=== PATIENT | female | born 2000 | race Caucasian/White ===

== ENCOUNTER 2020-01-09 12:47 | Inpatient (IN) | payer MEDICAID, SELFPAY ==
[2020-01-09] VITALS (11 sets, daily range): BP systolic 79–112; BP diastolic 35–80; PULSE 64–94; TEMP 36.7–36.9; BMI 28.2
--- NOTE | 2020-01-09 14:29 | PC.NURSE ---
Dr. Gallo notified up ultrasound report results. Admission orders received. Cervidil induction will be started r/t oligohydraminos and IUGR.
--- NOTE | 2020-01-09 14:38 | PC.NURSE ---
Plan of care discussed with patient using [employer] video strawhat sizer. Patient states understanding of induction and ultrasound report. Patient agrees to plan of care and induction.
--- NOTE | 2020-01-09 14:44 | LDADM ---
This patient, Jihan Lobo, was admitted to Labor/Delivery/Recovery 109 on 01/09/20 at 12:47. Plans for labor, pain management and were discussed with patient. Patient/family oriented to hospital policies and general routines including ID bracelet, bed and alarms, visiting hours, pain management, procedures, bathroom and other care routines, personal items, smoking policy, room service/diet and guest tray routines, infant security routines, and visiting hours. Patient/Family are encouraged to report perceived risks to care and to ask questions if they do not understand what they are told or what they should do. See OBIX for further documentation.
[2020-01-09] MEDS: DINOPROSTONE 10 MG VAG INSERT VAGINAL (15:25)
[2020-01-09 15:28] LABS: Basophils Percent Auto 0.4 % (0.2-1.2); Eosinophils Absolute Auto 0.3 K/mm3 (0-0.3); Eosinophils Percent Auto 2.5 % (0-4.4); Hematocrit 41.4 % (37.0-47.0); Hemoglobin 14.3 g/dL (12.0-15.0); Immature Granulocyte Absolute 0.03 K/mm3 (0.00-0.031); Immature Granulocyte Percent A 0.3 % (0-0.5); Lymphocytes Absolute Auto 2.03 K/mm3 (0.9-3.2); Lymphocytes Percent Auto 20.2 % (18.3-44.2); Mean Corpuscular HGB Conc 34.5 g/dl (32-36); Mean Corpuscular Hemoglobin 31.8 pg (26-34); Mean Platelet Volume 10.6 fl (7.4-10.4); Monocytes Absolute Auto 0.5 K/mm3 (0.1-0.6); Monocytes Percent Auto 5.3 % (2.6-8.5); Neutrophils Absolute Auto 7.2 K/mm3 (1.3-6.7); Neutrophils Percent Auto 71.3 % (45.5-73.1); Platelet Count Result 221 k/mm3 (150-375); Red Cell Distribution Width 12.7 % (11.5-14.5)
[2020-01-09] MEDS: LACTATED RINGERS 1,000 ML 125 ML IV CONT ×2 (16:05→18:26)
[2020-01-09] MEDS: AMPICILLIN 2 GM/NS 100 ML 2 GM/100 ML BAG IVPB (16:06)
[2020-01-09] MEDS: AMPICILLIN 1 GM/NS 50 ML 1 GM/50 ML BAG IVPB ×2 (19:45→23:33)
[2020-01-09 22:39] LABS: Amphetamine Screen Urine Negative (Negative); Barbiturate Screen Urine Negative (Negative); Benzodiazepines Screen Urine Negative (Negative); Cannabinoid Screen Urine Negative (Negative); Cocaine Screen Urine Negative (Negative); Methadone Screen Urine Negative (Negative); Opiate Screen Urine Negative (Negative); Phencyclidine Screen Urine Negative (Negative)
[2020-01-10] VITALS (203 sets, daily range): BP systolic 87–160; BP diastolic 42–135; PULSE 61–101; RESP 12–18; TEMP 36.6–37.2; O2SAT 96–100
[2020-01-10] MEDS: AMPICILLIN 1 GM/NS 50 ML 1 GM/50 ML BAG IVPB ×4 (03:41→17:22)
[2020-01-10] MEDS: OXYTOCIN 30 UNITS/NS 500 ML 30 UNITS/500 ML BAG 6 UNITS IV CONT (03:44)
[2020-01-10] MEDS: LACTATED RINGERS 1,000 ML 125 ML IV CONT ×3 (03:55→18:30)
--- NOTE | 2020-01-10 05:27 | WPDANESEPP ---
Anes - Eval Pre Procedure Procedure: Labor epidural Date/Time: 01/10/20 05:27 Surgeon: Cleo Preop Diagnosis: ABD pain with contractions Pre Op Diagnosis: Medical induction of Labor Patient Data Age: 19 Gender: F Height: 5 ft 2 in Weight: 70 kg Last Vital Signs Temp 98.4 F 01/10/20 03:30 Pulse 76 01/10/20 05:17 BP 106/49 L 01/10/20 05:17 Allergies Allergy/AdvReac Type Severity Reaction Status Date / Time No Known Allergies Allergy Verified 01/09/20 15:16 Home Medications Medication Instructions Recorded Confirmed Type PNV cmb#95-ferrous fumarate-FA 1 tablet PO DAILY 12/25/19 01/09/20 History [] folic acid 0.8 mg PO DAILY 12/25/19 01/09/20 History Laboratory Tests 01/09/20 01/09/20 01/09/20 15:02 15:02 15:02 WBC 10.0 K/mm3 K/mm3 (4.5-10.0) RBC 4.50 M/mm3 M/mm3 (4.2-5.4) Hgb 14.3 g/dL g/dL (12.0-15.0) Hct 41.4 % % (37.0-47.0) MCV 92.0 fl fl (80-100) MCH 31.8 pg pg (26-34) MCHC 34.5 g/dl g/dl (32-36) RDW 12.7 % % (11.5-14.5) Plt Count 221 k/mm3 k/mm3 (150-375) MPV 10.6 fl H fl (7.4-10.4) Immature Gran % (Auto) 0.3 % % (0-0.5) Neut % (Auto) 71.3 % % (45.5-73.1) Lymph % (Auto) 20.2 % % (18.3-44.2) [place] % (Auto) 5.3 % % (2.6-8.5) Eos % (Auto) 2.5 % % (0-4.4) Baso % (Auto) 0.4 % % (0.2-1.2) Lymph # (Auto) 2.03 K/mm3 K/mm3 (0.9-3.2) [place] # (Auto) 0.5 K/mm3 K/mm3 (0.1-0.6) Eos # (Auto) 0.3 K/mm3 K/mm3 (0-0.3) Baso # (Auto) 0.0 K/mm3 K/mm3 (0.0-0.1) Abs Immat Gran (auto) 0.03 K/mm3 K/mm3 (0.00-0.031) Absolute Neuts (auto) 7.2 K/mm3 H K/mm3 (1.3-6.7) Absolute Nucleated RBC 0.0 K/mm3 K/mm3 (0.0-0.012) Nucleated RBC % 0.0 % % (0.0-0.2) Urine Opiates Screen Urine Methadone Screen Ur Barbiturates Screen Ur Phencyclidine Scrn Ur Amphetamine Screen U Benzodiazepines Scrn Urine Cocaine Screen U Cannabinoids Screen RPR Pending Blood Type A Positive Antibody Screen Negative 01/09/20 22:04 WBC RBC Hgb Hct MCV MCH MCHC RDW Plt Count MPV Immature Gran % (Auto) Neut % (Auto) Lymph % (Auto) [place] % (Auto) Eos % (Auto) Baso % (Auto) Lymph # (Auto) [place] # (Auto) Eos # (Auto) Baso # (Auto) Abs Immat Gran (auto) Absolute Neuts (auto) Absolute Nucleated RBC Nucleated RBC % Urine Opiates Screen Negative (Negative) Urine Methadone Screen Negative (Negative) Ur Barbiturates Screen Negative (Negative) Ur Phencyclidine Scrn Negative (Negative) Ur Amphetamine Screen Negative (Negative) U Benzodiazepines Scrn Negative (Negative) Urine Cocaine Screen Negative (Negative) U Cannabinoids Screen Negative (Negative) RPR Blood Type Antibody Screen Patient hx anesthesia problems: none Family hx anesthesia problems: none [facility] Past Medical History Medical History (Updated 01/10/20 @ 05:28 by Alberto Masters CRNA) Overweight (BMI 25.0-29.9) and not yet delivered Family History Family History Mother Diabetes mellitus Social History Social History Smoking status: Never smoker Substance use: never Gender identity (if verbalized by the patient): Female Spiritual care concerns: No Exam Day of Procedure 01/10/20 05:27 Patient weight: overweight Neurological: alert and oriented
[2020-01-10 10:13] LABS: Rapid Plasma Reagin Non-Reactive (NonReactive)
[2020-01-10] MEDS: fentaNYL CITRATE INJ (*CRX) 100 MCG/2 ML VIAL 50 MCG IV PUSH (12:22)
--- NOTE | 2020-01-10 18:43 | PM.IMHP ---
H&P: HPI History of Present Illness Date/Time: 01/09/20 16:43 Chief complaint: Medical induction of Labor Narrative: Jihan Lobo is a 19 year old female primigravida Thai speaking presents at 37w2d With growth restriction ultrasound biophysical profile and Doppler studies revealed estimated weight 2475 g MARK of 4 oligohydramnios estimated weight 4th percentile now being admitted for induction of labor with Cervidil followed by oxytocin I explained her condition procedure risk involved maternal and indications for delivery explained and understood risk including but not limited to bleeding infection injury to bladder bowel baby pelvic vessels DVT pneumonia wound infections endometritis UTI and the risk of anesthesia and she agrees to proceed. c/b MTHFR, abnormal progesterone, and prediabetes Review of Systems Review of Systems: All systems reviewed & are unremarkable except as noted in HPI and below Constitutional: Constitutional: Reports no additional constitutional complaints Eyes: Eyes: Reports no additional eye complaints ENT: Reports system reviewed and no additional complaints, except as documented Cardiovascular: Cardiovascular: Reports no additional cardiovascular complaints Respiratory: Respiratory: Reports no additional respiratory complaints Gastrointestinal: Gastrointestinal: Reports no additional gastrointestinal complaints Genitourinary: Genitourinary: Reports no additional female genitourinary complaints Musculoskeletal: Musculoskeletal: Reports no additional musculoskeletal complaints Integumentary/Breasts: Skin/Breast: Reports system reviewed and no additional complaints, except as docu Neurologic: Reports system reviewed and no additional complaints, except as documented Psychiatric: Psychiatric: Reports no additional psychiatric complaints Endocrine: Endocrine: Reports no additional endocrine complaints Hematologic/Lymphatic: Hematologic/Lymphatic: Reports no additional hematologic/lymphatic complaints Allergic/Immunologic: Allergic/Immunologic: Reports no additional allergic/immunologic complaints [facility] Past Medical History Medical History (Updated 01/10/20 @ 18:53 by Johnson Gallo MD) growth restriction GBS (group B Streptococcus carrier), +RV culture, currently Heterozygous MTHFR mutation C677T Migraine headache Overweight (BMI 25.0-29.9) and not yet delivered Surgical History Surgical History H/O knee surgery Family History Family History Mother Diabetes mellitus Social History Social History Smoking status: Never smoker Second hand tobacco smoke exposure: No Alcohol intake: never Substance use: never Substance use type: does not use Living arrangements: with family Occupation/Education: unemployed Gender identity (if verbalized by the patient): Female Sexual Orientation (if Verbalized by the Patient): Straight or Heterosexual Spiritual care concerns: No Agree to blood products: Yes Meds Home Medications and Allergies Home Medications Medication Instructions Recorded Confirmed Type PNV cmb#95-ferrous fumarate-FA 1 tablet PO DAILY 12/25/19 01/09/20 History [] folic acid 0.8 mg PO DAILY 12/25/19 01/09/20 History Allergies Allergy/AdvReac Type Severity Reaction Status Date / Time No Known Allergies Allergy Verified 01/09/20 15:16 Vital Signs Vital Signs - 24 hr 01/09/20 22:04 01/09/20 23:31 01/09/20 23:35 Temperature 98.2 F Pulse Rate 71 71 Blood Pressure 79/35 L 89/63 L Pulse Oximetry 01/10/20 03:30 01/10/20 03:41 01/10/20 05:17 Temperature 98.4 F Pulse Rate 69 76 Blood Pressure 110/59 L 106/49 L Pulse Oximetry 01/10/20 05:30 01/10/20 05:45
--- NOTE | 2020-01-10 18:54 | WPDHPUPDATE1 ---
History and Physical Update Update Date/Time: 01/10/20 18:54 History and Physical has been reviewed, including an updated exam of the patient. There are NO changes in the patient's condition. Risks, benefits, and alternatives have been discussed and questions answered. Patient agrees to proceed with procedure. 19 y/o primigravida Citizen Of [place] speaking F presents at 37w2d for growth restriction oligohydramnios GBS positive here for induction of labor. c/b MTHFR, abnormal progesterone, and prediabetes
--- NOTE | 2020-01-10 18:56 | P.HP_ITS ---
Obstetrics - Admit Note Admission Note: record reviewed. No pertinent additions to the history and/or any subsequent changes in the physical findings that are not consistent with the expected course of the were found. Additions to the history and/or subsequent changes in the physical findings follow. None. 19 y/o primigravida [place] speaking F presents at 37w2d for growth restriction oligohydramnios GBS positive here for induction of labor and delivery. c/b MTHFR, abnormal progesterone, and prediabetes
--- NOTE | 2020-01-10 18:56 | PM.OBPNLAB ---
Pain Control Date/time seen: 01/10/20 18:56 Pain control: tolerating well and epidural Pelvic Exam Dilation (cm): 1 Effacement (%): 100 station: 0 Amniotic membrane status: Ruptured ( AROM IUPC placed without difficulty clear fluid obtained bloody show noted) Contractions Monitor mode: Internal Contraction frequency: 3 Contraction duration: 45 Contraction pattern: Regular Contraction phase: Resting Contraction intensity: Moderate Status status: Category l Assessment and Plan Assessment: induction ongoing Plan: continuous present management
--- NOTE | 2020-01-10 20:26 | PM.OBPNLAB ---
Pain Control Date/time seen: 01/10/20 20:26 Pain control: tolerating well and epidural Pelvic Exam Dilation (cm): 1 Effacement (%): 100 station: 0 Amniotic membrane status: Ruptured ( AROM IUPC placed without difficulty clear fluid obtained bloody show noted) Contractions Monitor mode: Internal Contraction frequency: 3 Contraction duration: 45 Contraction pattern: Regular Contraction phase: Resting Contraction intensity: Moderate Status status: Category l Assessment and Plan Pitocin rate (mU/min): 12 Assessment: induction ongoing and other ( failure to progress in labor, cephalopelvic disproportion) Plan: ( primary low transverse) Comments: epidural anesthesia Informed consent obtained
[2020-01-10] MEDS: ceFAZolin 2 GM/D5W 50 ML 2 GM/50 ML BAG IVPB (20:52)
[2020-01-10] MEDS: OXYTOCIN 10 UNITS/ML VIAL (21:22)
--- NOTE | 2020-01-10 21:57 | PM.OBPRVD ---
OB - Delivery Note Procedure Procedure: Procedures Operation Date: 01/10/20 20:15 primary low transverse section with delivery of viable male infant and placenta events: Oligohydramnios Intrapartal events: Ceph-Pelvic Disproportion Induction method: per misoprostol protocol and per pitocin protocol Delivery augmentation: rupture of membranes and pitocin Delivery monitor: external FHT and internal uterine Route of delivery: ( primary low transverse) Specimen: Yes ( placenta) Estimated blood loss (mL): 470 Anesthesia type: Spinal Disposition: floor Complications: none Baby Date of : 01/10/20 Time of : 21:16 Weeks of gestation at delivery: 37 Infant gender: Male Weight (pounds): 5 Weight (ounces): 2 presentation: vertex position: Left Occiput Transverse Placenta delivery description: Manual Removal and Normal Configuration cord vessel description: 3 Vessels score one minute: 9 score five minutes: 9
--- NOTE | 2020-01-10 22:01 | P.OP_ITS ---
Procedure Note - Detailed Date of procedure: 01/10/20 Pre-op diagnosis: Medical induction of Labor term 37 weeks growth restriction oligohydramnios failure to dilate cephalopelvic disproportion GBS carrier heterozygous MTHFR mutation Post-op diagnosis: same ( delivered viable male ) Procedure performed: primary low transverse section with delivery of viable male infant and placenta Description of procedure: informed consent obtained patient taken to the operating room where the epidural anesthesia was removed and a spinal anesthetic was administered with a Miller catheter in place the abdomen was then prepped and draped in the usual sterile fashion and a time-out was performed A Pfannenstiel incision was made to the skin in the abdomen was opened in layers hemostasis obtained by cauterization fascia was entered bilaterally undermined inferiorly and superiorly rectus muscle in the midline peritoneum was entered with electrocautery transverse incision was then made to the uterus and extended bilaterally digitally vertex was then delivered via the abdominal incision with nose and throat pink bulb suction the cord was clamped and cut and the infant was handed to the nursery nurse in attendance scores 9 and 9 weight 5 lb 2 oz 18 in long taken to the nursery in stable condition placenta cord gases and cord blood was obtained and the placenta was delivered intact with a three-vessel cord with the uterus beatriz well Pitocin given intravenously and 10 units into the myometrium. The uterus was externalized blood clots membranes removed from the intrauterine cavity the uterine incision was then repaired in 2 layers with 0 Vicryl in a running interlocking fashion 2nd being an imbricating stitch irrigation was performed blood clots removed from the cul-de-sac on both lateral gutters the uterus was returned to the peritoneal cavity the sponge needle and instrument counts were correct the anterior peritoneum and rectus muscles were reapproximated with 0 Vicryl suture in a running fashion. Fascia was closed with 2. Quill SIRS system bilaterally. Axel's fascia reapproximated 3 0 plain skin closed with absorbable laura under the skin and Dermabond to the skin a sterile dressing was applied the patient was taken to the recovery room stable condition patient tolerated procedure well was in recovery stable condition . Anesthesia: spinal Surgeon: Johnson Gallo MD Admissions Nurse: surgical assists x2 Estimated blood loss (mL): 470 IV fluids (mL): 1,000 Urine output (mL): 200 Drains: No Packing: No Pathology: yes ( placenta) Complications: None Condition: stable Disposition: floor Findings: viable male infant delivered at 9:16 p.m. scores 9 and 9 at 1 and 5 minutes weighing 5 lb 2 oz 18 in long taken to the nursery in stable condition. Spontaneous respirations and cry normal transition no abnormalities on the exam Placenta intact three-vessel cord uterus tubes ovaries normal Counts correct complications none specimens pathology placenta VTE prevention SCDs Antibiotic prophylaxis Ancef 2 g Patient in recovery room stable condition
--- NOTE | 2020-01-10 22:08 | PM.OBDSVD ---
DS: Admitting Diagnosis Admitting Diagnosis Admitting Diagnosis: Medical induction of Labor Term growth restriction Heterozygous MTHFR mutation Oligohydramnios GBS carrier DS: Discharge Diagnosis Discharge Diagnosis (1) Term delivered: Code(s): O80 - Encounter for full-term uncomplicated delivery Status: Acute (2) Cephalopelvic disproportion: Code(s): O33.9 - Maternal care for disproportion, unspecified Status: Acute (3) Failure of cervical dilation: Code(s): O62.0 - Primary inadequate contractions Status: Acute (4) Oligohydramnios: Code(s): O41.00X0 - Oligohydramnios, unspecified trimester, not applicable or unspecified Status: Acute (5) GBS (group B Streptococcus carrier), +RV culture, currently : Code(s): O99.820 - Streptococcus B carrier state complicating Status: Acute (6) growth restriction: Status: Acute (7) Heterozygous MTHFR mutation C677T: Code(s): 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 - Methylenetetrahydrofolate reductase deficiency Status: Acute (8) Delivery by section: Status: Acute OB - DS: Summary Hospital Course Time spent discussing smoking cessation with patient: 3 to 10 minutes OB Procedures : Ultrasound OB Procedures Intrapartum: ( primary) low cervical, transverse and GBS prophylaxis OB Procedures: : None Peripartum Data Infant Delivery Method: Section ( primary low transverse) Laceration description: None Episiotomy description: None Procedures: Procedures Operation Date: 01/10/20 20:15 primary low transverse section with delivery of viable male infant and placenta complications: none [place] 1: Gender: Male Disposition of : home Status at Discharge Functional status at discharge: independent ambulation Overall status at discharge: patient is back to baseline Time Spent with Patient Time attestation: Total time spent providing and/or coordinating discharge services: Time spent: Less than 30 minutes Exam Const: General: comfortable and no acute distress Orientation/consciousness: patient oriented x3 Limitations: no limitations Chest: Breast/axilla inspection: normal inspection of the breasts Breast/axilla palpation: normal palpation of the breasts Resp: Effort & Inspection: normal respiratory effort Auscultation: clear to auscultation bilaterally Cardio: Rate: regular rate GI: Inspection: normal to inspection and incision ( clean dry intact dressing normal) GI Palp: Yes Soft to palpation Percussion: Yes normal to percussion Auscultation: normal bowel sounds : General: Yes bladder normal to inspection and Yes no CVA tenderness Psych: Appearance: grossly normal Mental Status: mental status grossly normal Affect: normal affect Attitude: cooperative Thought content: Yes Normal thought content present Judgement: Good judgement present (Psych) DS: Data Data Completed and Pending Labs on day of discharge: Labs from last 24 hours 01/09/20 01/09/20 22:04 15:02 Urine Opiates Screen Negative Urine Methadone Screen Negative Ur Barbiturates Screen Negative Ur Phencyclidine Scrn Negative Ur Amphetamine Screen Negative U Benzodiazepines Scrn Negative Urine Cocaine Screen Negative U Cannabinoids Screen Negative RPR Non-reactive Discharge Plan Discharge Attending physician on discharge: Johnson Gallo Discharging Clinician: Johnson Gallo Anticipated Discharge Date/Time: 01/13/20 10:13 Patient Disposition: Home, Self-Care Activity: may shower, no straining, no driving and may drive after 2 weeks Diet: as tolerated and regular Wound Care Instructions: follow printed instructions Discharge Instructions: routine Patient Instructions: Antibiotic Form Stand Alone Forms: General Discharge Information Follow-up/Referrals:
[2020-01-10] MEDS: OXYTOCIN 30 UNITS/NS 500 ML 30 UNITS/500 ML BAG 125 UNITS IV CONT (22:51)
[2020-01-11] VITALS (17 sets, daily range): BP systolic 88–113; BP diastolic 47–66; PULSE 61–85; RESP 16–18; TEMP 36.7–37.2; O2SAT 94–99
[2020-01-11] MEDS: KETOROLAC 30 MG/ML VIAL (*BKC) IV PUSH ×4 (00:30→16:06)
[2020-01-11] MEDS: DEXTROSE 5%/0.45% SOD CHL 1,000 ML 125 ML IV CONT (03:30)
[2020-01-11 05:45] LABS: Basophils Percent Auto 0.2 % (0.2-1.2); Eosinophils Percent Auto 0.2 % (0-4.4); Hematocrit 29.9 % (37.0-47.0); Hemoglobin 10.4 g/dL (12.0-15.0); Immature Granulocyte Absolute 0.08 K/mm3 (0.00-0.031); Immature Granulocyte Percent A 0.6 % (0-0.5); Lymphocytes Absolute Auto 1.46 K/mm3 (0.9-3.2); Lymphocytes Percent Auto 10.6 % (18.3-44.2); Mean Corpuscular HGB Conc 34.8 g/dl (32-36); Mean Corpuscular Hemoglobin 31.7 pg (26-34); Mean Corpuscular Volume 91.2 fl (80-100); Mean Platelet Volume 10.8 fl (7.4-10.4); Monocytes Absolute Auto 0.6 K/mm3 (0.1-0.6); Monocytes Percent Auto 4.6 % (2.6-8.5); Neutrophils Absolute Auto 11.5 K/mm3 (1.3-6.7); Neutrophils Percent Auto 83.8 % (45.5-73.1); Platelet Count Result 144 k/mm3 (150-375); Red Blood Count 3.28 M/mm3 (4.2-5.4); Red Cell Distribution Width 12.3 % (11.5-14.5); White Blood Count 13.8 K/mm3 (4.5-10.0)
--- NOTE | 2020-01-11 09:20 | WPDANLDPN2 ---
Anes-Prog Note L&D Date/Time: 01/11/20 09:20 Comfortable throughout: section Neuraxial method: spinal Epidural/Spinal procedure site: clean & non-tender Neuro status: Neuro function grossly intact. Cardiovascular status: normal Respiratory status: normal Airway patency: baseline Mental status: baseline Post-Op hydration status: normal Vital Signs: Last Vital Signs Temp 36.7 C 01/11/20 04:00 Pulse 83 01/11/20 04:00 Resp 16 01/11/20 04:00 BP 97/47 L 01/11/20 04:00 Pulse Ox 98 01/11/20 04:00 Pain score (VAS): 0 I/O: Intake & Output 01/10/20 01/11/20 01/11/20 23:59 07:59 15:59 Intake Total 2100 1150 Output Total 200 815 Balance 1900 335 Post-procedural complaints: none Patient feedback: Patient satisfied with anesthetic care.
--- NOTE | 2020-01-11 09:21 | WPDANLDNPN2 ---
Anes-Prog Note L&D-Neuraxial Date/Time: 01/11/20 09:21 Neuraxial medications: intrathecal PF morphine Opiod-related complaints: none Patient feedback: Patient satisfied with post-operative pain management.
--- NOTE | 2020-01-11 09:30 | PC.NURSE ---
PT introductions made and plan of care discussed per post op c section, pain management, breast/bottle feeding, daily care activities using pt's language delilah on her phone. Any questions asked and answered regarding certificate, blood sugars on baby, and supervisor inspection and testing. PT verbalized understanding of such instructions.
[2020-01-11] MEDS: SIMETHICONE 80 MG TAB.CHEW PO (10:23)
[2020-01-11] MEDS: DOCUSATE SODIUM 100 MG CAPSULE PO ×2 (10:23→16:06)
[2020-01-11] MEDS: MULTIVIT/MIN/PREN/FOL AC/IRON TABLET 1 TAB PO (10:23)
[2020-01-11] MEDS: LANOLIN (LANSINOH) 7.5 GM CREAM 1 APPLIC TOPICAL (10:24)
--- NOTE | 2020-01-11 12:00 | PC.NURSE ---
Consult with pt., thru cell tender helper. Mother states she is pumping and bottle feeding at this time, due to infant is sleepy and not latching. continues to pump without difficulties. Mother states her goal is to eventually exclusively breastfeed. Suggested mother attempt infant to breast each feeding for a few minutes and allow infant to skin to skin to assist with milk production. Pt.'s mother is at bedside assisting her with latching and care. Mother attempts infant to breast, Advised mother to pump after attempt and any EBM obtained should be given with next feeding. Reviewed infant feeding cues, frequencies, duration of feedings, feeding elimination flow sheet, and signs of adequate intake. Demonstrated stimulation techniques to wake infant for feeding. Reviewed positioning/alignment in cross cradle, holding breast in U hold and guided asymmetrical latch on. Discussed rational for each. Infant is sleepy and makes weak attempts to latch with no suckling noted. Nipple care reviewed. Instructed mother to call out for RN assistance if she is unable to latch infant for feeding or she has discomfort with nursing. Instructed feeding should be initiated three hours from start of last feeding or if feeding cues are noted before. Mother voiced understanding of information shared. Reviewed instructions given on breast pump care and usage, pumping schedule, nipple care, and collection and storage of breast milk. Encouraged [id number], breast massage and manual expression to stimulate supply. Assessed patient for correct flange size, placement and draw. Patient verbalizes and demonstrates understanding of instructions.
[2020-01-11] MEDS: HYDROcodone/acetaminophen (*CRX) 10-325 MG TABLET 1 TAB PO (12:14)
[2020-01-12] MEDS: IBUPROFEN 600 MG TABLET PO ×2 (05:16→16:59)
[2020-01-12] MEDS: HYDROcodone/acetaminophen (*CRX) 5-325 MG TABLET 1 TAB PO ×3 (05:16→16:57)
[2020-01-12 08:30] VITALS: PULSE 64; RESP 16; O2SAT 100
[2020-01-12 08:35] VITALS: BP 90/50; PULSE 64; RESP 16; TEMP 37.3; O2SAT 100
[2020-01-12] MEDS: MULTIVIT/MIN/PREN/FOL AC/IRON TABLET 1 TAB PO (09:20)
[2020-01-12] MEDS: DOCUSATE SODIUM 100 MG CAPSULE PO ×2 (09:20→16:57)
--- NOTE | 2020-01-12 10:27 | PM.OBPNVD ---
OB - PN: Subj Subjective Date/time seen: 01/12/20 10:27 Patient comments: no complaints, pain well controlled, tolerating diet and flatus present [place] baby status: doing well and bottle feeding well [place] feeding status: exclusively bottle feeding OB - PN: Obj Data Labs CBC & Chem 7: 01/11/20 05:13 OB - PN A/P Assessment and Plan (1) Term delivered: Code(s): O80 - Encounter for full-term uncomplicated delivery Status: Acute (2) Cephalopelvic disproportion: Code(s): O33.9 - Maternal care for disproportion, unspecified Status: Acute (3) Failure of cervical dilation: Code(s): O62.0 - Primary inadequate contractions Status: Acute (4) GBS (group B Streptococcus carrier), +RV culture, currently : Code(s): O99.820 - Streptococcus B carrier state complicating Status: Acute (5) growth restriction: Status: Acute (6) Heterozygous MTHFR mutation C677T: Code(s): E72.12 - Methylenetetrahydrofolate reductase deficiency Status: Acute (7) Delivery by section: Status: Acute Assessment and Plan: Stable Time Spent With Patient Time: Total time spent is greater than 50% in coordination of care (as documented) at patient's floor/unit and/or counseling patient: discharged to home in the morning return to the office in 3 weeks Review of Systems Review of Systems: All systems reviewed & are unremarkable except as noted in HPI and below Constitutional: Constitutional: Reports no additional constitutional complaints Cardiovascular: Cardiovascular: Reports no additional cardiovascular complaints Respiratory: Respiratory: Reports no additional respiratory complaints Gastrointestinal: Gastrointestinal: Reports no additional gastrointestinal complaints Genitourinary: Genitourinary: Reports no additional female genitourinary complaints Integumentary/Breasts: Skin/Breast: Reports system reviewed and no additional complaints, except as docu Neurologic: Reports system reviewed and no additional complaints, except as documented Exam Const: General: comfortable and no acute distress Orientation/consciousness: patient oriented x3 Chest: Breast/axilla inspection: normal inspection of the breasts Resp: Effort & Inspection: normal respiratory effort Auscultation: clear to auscultation bilaterally Cardio: Rate: regular rate GI: Inspection: normal to inspection and incision GI Palp: Yes Soft to palpation Percussion: Yes normal to percussion Auscultation: normal bowel sounds : General: Yes bladder normal to inspection and Yes no CVA tenderness Psych: Appearance: grossly normal Mental Status: mental status grossly normal Affect: normal affect Attitude: cooperative Judgement: Good judgement present (Psych)
--- NOTE | 2020-01-12 13:00 | PC.NURSE ---
Consult with pt., thru braiding machine operator. Mother continues to pump without difficulties. Mother attempts infant to breast most feedings, is sleepy and makes weak attempts to latch with no suckling noted. Mother is wic and has a [place] speaking peer counselor, which she plans to call for appointment later next week. Mother has started the pump process with [facility] and they will provide her with a pump. Advised mother to pump after attempt and any EBM obtained should be given with next feeding.
[2020-01-12] MEDS: SIMETHICONE 80 MG TAB.CHEW PO (19:27)
[2020-01-12] MEDS: BISACODYL 10 MG SUPPOSITORY RECTAL (19:27)
[2020-01-12 19:34] VITALS: BP 113/71; PULSE 64; RESP 18; TEMP 36.8; O2SAT 100
[2020-01-13] MEDS: IBUPROFEN 600 MG TABLET PO ×2 (05:17→11:08)
[2020-01-13] MEDS: HYDROcodone/acetaminophen (*CRX) 5-325 MG TABLET 1 TAB PO ×2 (05:17→09:03)
[2020-01-13 08:15] VITALS: BP 96/46; PULSE 59; RESP 16; TEMP 36.6; O2SAT 98
[2020-01-13] MEDS: MULTIVIT/MIN/PREN/FOL AC/IRON TABLET 1 TAB PO (09:03)
[2020-01-13] MEDS: DOCUSATE SODIUM 100 MG CAPSULE PO (09:03)
--- NOTE | 2020-01-13 11:43 | WPDANLDPN2 ---
Anes-Prog Note L&D Date/Time: 01/13/20 11:43 Comfortable throughout: section Neuraxial method: spinal Epidural/Spinal procedure site: clean & non-tender Neuro status: Neuro function grossly intact. Cardiovascular status: normal Respiratory status: normal Airway patency: baseline Mental status: baseline Post-Op hydration status: normal Vital Signs: Last Vital Signs Temp 36.6 C 01/13/20 08:15 Pulse 59 L 01/13/20 08:15 Resp 16 01/13/20 08:15 BP 96/46 L 01/13/20 08:15 Pulse Ox 98 01/13/20 08:15 Pain score (VAS): 0 Post-procedural complaints: none Patient feedback: Patient satisfied with anesthetic care.
--- NOTE | 2020-01-13 11:43 | WPDANLDNPN2 ---
Anes-Prog Note L&D-Neuraxial Date/Time: 01/13/20 11:43 Neuraxial medications: intrathecal PF morphine Opiod-related complaints: none Patient feedback: Patient satisfied with post-operative pain management.
[2020-01-15 12:22] VITALS: BP 103/51; PULSE 55; RESP 18; TEMP 36.9; O2SAT 100
== END 2020-01-13 13:44 | disposition home or self-care (01) | DRG 540 ==
LOC: ANHLDR 01-10 22:15 → ANHOB2 01-11 00:15
PROVIDERS: Admitting Provider Obstetrics & Gynecology; PCP Physician Assistant; Visit Provider Obstetrics & Gynecology
PROC: 10D00Z1 Extraction of Products of Conception, Low, Open Approach (ICD-10-PCS; CPT 59514; principal; 2020-01-10 20:15)
DX: O36.5930 Maternal care for other known or suspected poor fetal growth, third trimester, not applicable or unspecified (principal); O99.284 Endocrine, nutritional and metabolic diseases complicating childbirth; E72.12 Methylenetetrahydrofolate reductase deficiency; O99.824 Streptococcus B carrier state complicating childbirth; O41.03X0 Oligohydramnios, third trimester, not applicable or unspecified; O76 Abnormality in fetal heart rate and rhythm complicating labor and delivery; Z3A.38 38 weeks gestation of pregnancy; Z37.0 Single live birth; Z23 Encounter for immunization; R73.03 Prediabetes; O62.0 Primary inadequate contractions; O33.9 Maternal care for disproportion, unspecified
CPT/HCPCS: 36415; 76816; 76819; 76820; 80307; 85025; 86592; 86850; 86900; 86901; 88307; 90471; 90653; A9270; G0008; J0131; J0290; J0690; J1885; J2274; J2590; J2795; J3010; J7120

== ENCOUNTER 2020-01-09 12:51 | Outpatient (RCR) | payer MEDICAID, SELFPAY ==
[2020-01-01 17:25] VITALS: BP 114/58; PULSE 67
[2020-01-01 17:51] VITALS: BP 114/58; PULSE 73
--- NOTE | ~2020-01-09 | US_ITS ---
EXAMINATION: US OB follow up w BPP, US umbilical doppler DATE: 01/09/2020 14:04 INDICATION: Small for gestational age during third trimester of . TECHNIQUE: Real-time pelvic ultrasound was performed. The interpreting radiologist was not present fo r the study. COMPARISON: 01/01/2020 FINDINGS: There is a single living fetus in vertex presentation. The placenta is anterior fundal. heart rate is 139 beats per minute (bpm). Amniotic fluid index is 4.1 cm (5th%-95%: - cm at weeks estimated gestational age) The umbilical artery demonstrates a peak systolic and diastolic velocity ratio of 2.5 at the fetus, 3 .0 in the mid cord and 2.5 near the placenta (2.5th%-97.5%: 6.5-26.9 at 38 weeks estimated gestationa l age). The following biometric data were obtained: BPD: 8.9 cm -> 35 weeks 5 days Head circumference: 31.6 cm -> 35 weeks 3 days Abdominal circumference: 30.6 cm -> 34 weeks 4 days Femur length: 6.8 cm -> 35 weeks 1 days These measurements are concordant. Head circumference to abdominal circumference ratio: 1.03 (normal range 0.93-1.10). Estimated weight: 2547 g (+/-) 382 g, 5 lbs 10 oz (+/-) 13 oz Biophysical profile performed by the technologist: breathing (30 sec sustained breathing in 30 minutes): 2 out of 2 movement (3 gross body movements in 30 minutes: 2 out of 2 tone (one episode of vasebig-eohulqsqt-jqhnrkj limb movement): 2 out of 2 Amniotic fluid pocket (2 cm): 2 out of 2 Total score: 8 out of 8 IMPRESSION: 1. Single living fetus in vertex presentation with heart rate of 139 bpm. 2. Oligohydramnios with amniotic fluid index of 4.1 cm which is greater than 3 standard deviations be low the mean. 3. Normal umbilical arterial systolic to diastolic velocity ratios. 4. Biophysical profile 8 out of 8. 5. Estimated weight is 5th percentile by Hadlock criteria when 01/23/2020 is used as the estima tyrell date of delivery (KRISHNA). Please correlate with clinical information or earlier ultrasounds for mos t accurate KRISHNA. Reviewed, dictated and finalized at location A. IMPRESSION: 1. Single living fetus in vertex presentation with heart rate of 139 bpm. 2. Oligohydramnios with amniotic fluid index of 4.1 cm which is greater than 3 standard deviations below the mean. 3. Normal umbilical arterial systolic to diastolic velocity ratios. 4. Biophysical profile 8 out of 8. 5. Estimated weight is 5th percentile by Hadlock criteria when 01/23/2020 is used as the estimated date of delivery (KRISHNA). Please correlate with clinica l information or earlier ultrasounds for most accurate KRISHNA.
--- NOTE | ~2020-01-09 | US_ITS ---
EXAMINATION: US OB follow up w BPP, US umbilical doppler DATE: 01/01/2020 18:45 INDICATION: Intrauterine growth retardation during third trimester of TECHNIQUE: Real-time pelvic ultrasound was performed. The interpreting radiologist was not present fo r the study. COMPARISON: None. FINDINGS: There is a single living fetus in vertex presentation. The placenta is fundal. heart rate is 1 25 beats per minute (bpm). Normal amniotic fluid index of 8.3 cm (5th%-95%: 7.7-24.9 cm at 36 weeks e stimated gestational age). Biophysical profile performed by the technologist: breathing (30 sec sustained breathing in 30 minutes): 2 out of 2 movement (3 gross body movements in 30 minutes): 2 out of 2 tone (one episode of rszcktt-lnhjohmgc-hmizbol limb movement): 2 out of 2 Amniotic fluid pocket (2 cm): 2 out of 2 Total score: 8 out of 8 The umbilical artery demonstrates a peak systolic and diastolic velocity ratio of 3.5 at the fetus, 2 .3-2.7 in the mid cord and 3.1 near the placenta (5th%-95%: 1.98-3.29 at 36 weeks). IMPRESSION: 1. Single living fetus in vertex presentation with heart rate of 125 bpm. 2. Biophysical profile 8 out of 8. 3. Normal amniotic fluid index of 8.3 cm. 4. Umbilical artery systolic to diastolic velocity ratio is slightly greater than normal near the [place] but within normal limits at the fetus and mid cord. Reviewed, dictated and finalized at location A. IMPRESSION: 1. Single living fetus in vertex presentation with heart rate of 125 bpm. 2. Biophysical profile 8 out of 8. 3. Normal amniotic fluid index of 8.3 cm. 4. Umbilical artery systolic to diastolic velocity ratio is slightly greater th an normal near the placenta but within normal limits at the fetus and mid cord.
== END 2020-01-11 08:22 | disposition home or self-care (01) ==
LOC: ANHOBOP 12:51
PROVIDERS: PCP Physician Assistant; Visit Provider Obstetrics & Gynecology
DX: O36.5930 Maternal care for other known or suspected poor fetal growth, third trimester, not applicable or unspecified (principal); O41.03X0 Oligohydramnios, third trimester, not applicable or unspecified; Z3A.36 36 weeks gestation of pregnancy
CPT/HCPCS: 59025; 76816; 76819; 76820

== ENCOUNTER 2021-06-10 15:53 | Emergency (ER) | payer BC, SELFPAY ==
--- NOTE | ~2021-06-10 | XR_ITS ---
EXAMINATION: XR abdomen/kub 1V DATE: 06/10/2021 19:26 INDICATION: Upper abdominal pain, nausea and vomiting TECHNIQUE: A supine view of the abdomen on 2 radiographs was obtained. COMPARISON: None. FINDINGS: Moderate amount of stool scattered throughout the colon. No dilated loops of gas-filled bowel to sugg est obstruction. Lung bases are clear. Heart size is normal. 3 mm calcific density projecting between the right transverse process of L5 and the right sacral ala which could represent a phlebolith or sm all stone in the mid right ureter. Linear foreign body projecting over the central pelvis likely repr esenting a T-shaped IUD seen on end. IMPRESSION: 1. Normal bowel gas pattern. 2. 3 mm calcific density projecting over the paravertebral right lower quadrant which could represent a phlebolith or right ureteral stone. Correlate with urinalysis and for renal colic type pain. 3. IUD Reviewed, dictated and finalized at location A. [employer] IMPRESSION: 1. Normal bowel gas pattern. 2. 3 mm calcific density projecting over the paravertebral right lower quadrant which could represent a phlebolith or right ureteral stone. Correlate with uri nalysis and for renal colic type pain. 3. IUD
[2021-06-10 16:22] VITALS: BP 122/77; PULSE 52; RESP 16; TEMP 36.5; O2SAT 100
--- NOTE | 2021-06-10 18:54 | ED.ABDPAIN ---
HPI - Abdominal Pain General Chief Complaint: Abdominal Pain Stated Complaint: abdominal pain Time Seen by Provider: 06/10/21 18:41 Source: patient Mode of arrival: ambulatory Limitations: no limitations History of Present Illness HPI narrative: Patient is a 19-year-old female complaining of abdominal pain cough upper abdominal area, moderate, radiating to back that started approximately 2 weeks ago. Patient denies any chest pain, shortness of breath, nausea, vomiting, diarrhea, urinary symptoms, fever or chills. Related Data Allergies Allergy/AdvReac Type Severity Reaction Status Date / Time No Known Allergies Allergy Verified 01/09/20 15:16 Review of Systems Review of Systems: All systems reviewed & are unremarkable except as noted in HPI and below Constitutional: Constitutional: Denies body ache(s), Denies chills, Denies excessive sweating, Denies fatigue, Denies fever(s), Denies headache(s), Denies lethargy, Denies malaise, Denies weakness and Denies weight loss Eyes: Eyes: Denies blurry vision, Denies change in vision and Denies loss of vision ENT: Denies dizziness, Denies ear discharge, Denies headache(s), Denies lip swelling, Denies epistaxis, Denies nasal congestion, Denies neck pain, Denies throat swelling and Denies tongue swelling Cardiovascular: Cardiovascular: Denies chest pain, Denies chest pain at rest, Denies chest pain with activity, Denies diaphoresis, Denies rapid heart rate, Denies edema, Denies irregular heart rhythm, Denies lightheadedness, Denies palpitations, Denies dyspnea and Denies dyspnea on exertion Respiratory: Respiratory: Denies chest congestion, Denies cough, Denies hemoptysis, Denies dyspnea and Denies dyspnea on exertion Gastrointestinal: Gastrointestinal: Denies melena, Denies hematochezia, Denies diarrhea, Denies nausea, Denies vomiting and Denies hematemesis Musculoskeletal: Musculoskeletal: Denies abnormal gait, Denies deformity, Denies joint swelling, Denies limited range of motion, Denies neck pain and Denies numbness Neurologic: Denies Abnormal speech present, Denies abnormal gait, Denies confusion, Denies dizziness, Denies headache(s), Denies focal weakness, Denies loss of vision, Denies numbness, Denies Other visual disturbances, Denies Sensory deficit (Neuro) and Denies weakness Psychiatric: Psychiatric: Denies confusion, Denies depression, Denies auditory hallucinations, Denies homicidal ideation and Denies suicidal ideation Endocrine: Endocrine: Denies cold intolerance, Denies excessive sweating, Denies fatigue, Denies heat intolerance and Denies palpitations Hematologic/Lymphatic: Hematologic/Lymphatic: Denies easy bleeding and Denies easy bruising Allergic/Immunologic: Allergic/Immunologic: Denies lip swelling, Denies throat swelling and Denies tongue swelling PMFSH Past Medical History Medical History growth restriction GBS (group B Streptococcus carrier), +RV culture, currently Heterozygous MTHFR mutation C677T Migraine headache Overweight (BMI 25.0-29.9) and not yet delivered Surgical History Surgical History Delivery by section H/O knee surgery Family History Family History Mother Diabetes mellitus Social History Social History Smoking status: Never smoker Second hand tobacco smoke exposure: No Alcohol intake: never Substance use: never Substance use type: does not use Gender identity (if verbalized by the patient): Female Sexual Orientation (if Verbalized by the Patient): Straight or Heterosexual Spiritual care concerns: No Agree to blood products: Yes Exam Const: General: cooperative, healthy appearing, comfortable, no acute distress, well developed, alert and awake; No confusion Orienta
[2021-06-10 19:07] VITALS: BP 118/68; PULSE 62; RESP 16; TEMP 36.3; O2SAT 100
[2021-06-10 19:08] LABS: Basophils Absolute Auto 0.1 K/mm3 (0.0-0.1); Basophils Percent Auto 0.6 % (0.2-1.2); Eosinophils Absolute Auto 0.3 K/mm3 (0-0.3); Eosinophils Percent Auto 3.6 % (0-4.4); Hemoglobin 13.3 g/dL (12.0-15.0); Immature Granulocyte Absolute 0.01 K/mm3 (0.00-0.031); Immature Granulocyte Percent A 0.1 % (0-0.5); Lymphocytes Absolute Auto 3.09 K/mm3 (0.9-3.2); Lymphocytes Percent Auto 35.7 % (18.3-44.2); Mean Corpuscular HGB Conc 33.3 g/dl (32-36); Mean Corpuscular Hemoglobin 29.3 pg (26-34); Mean Corpuscular Volume 88.1 fl (80-100); Mean Platelet Volume 10.3 fl (7.4-10.4); Monocytes Absolute Auto 0.5 K/mm3 (0.1-0.6); Monocytes Percent Auto 5.5 % (2.6-8.5); Neutrophils Absolute Auto 4.7 K/mm3 (1.3-6.7); Neutrophils Percent Auto 54.5 % (45.5-73.1); Platelet Count Result 257 k/mm3 (150-375); Red Blood Count 4.54 M/mm3 (4.2-5.4); Red Cell Distribution Width 12.4 % (11.5-14.5); White Blood Count 8.7 K/mm3 (4.5-10.0)
[2021-06-10 19:15] LABS: Add Urine Microscopic? YES; Appearance Urine Cloudy (Clear); Bilirubin Urine Negative (Negative); Blood Urine 1+ (Negative); Color Urine Yellow (Yellow); Glucose Urine UA Negative (Negative); Ketones Urine Negative (Negative); Leukocyte Esterase Ur 3+ LEU/UL (Negative); Mucus Urine Rare /lpf; Nitrate Urine Negative (Negative); Protein Urine Negative (Negative); Specific Grav Ur 1.025 (1.001-1.035); Squamous Epithelial Cell Urine Many /hpf (Few); Urobilinogen Urine Negative mg/dL (<2.0); WBC Urine 16-20 /hpf
[2021-06-10 19:18] LABS: Alanine Aminotransferase 16 U/L (4-35); Albumin Level 4.8 g/dL (3.5-5.1); Alkaline Phosphatase 62 U/L (38-126); Anion Gap 10 mmol/L (8-16); Aspartate Amino Transferase 20 U/L (14-36); Bilirubin,Total 0.2 mg/dL (0.2-1.3); Blood Urea Nitrogen 15 mg/dL (7-17); Calcium 9.4 mg/dL (8.4-10.2); Carbon Dioxide 25 mmol/L (22-30); Chloride 104 mmol/L (98-107); Estimated CRCL calculation 113 ml/min; Estimated Glomerular Filt Rate > 60; Glucose 101 mg/dL (65-110); Lipase 230 U/L (23-300); Potassium 3.7 mmol/L (3.4-5.0); Sodium 139 mmol/L (137-145)
[2021-06-10] MEDS: FAMOTIDINE 20 MG TABLET 40 MG PO (19:24)
[2021-06-10] MEDS: BELLADONNA ALK/PHENOB ELIX 10 ML, MAG HYDROX/ALUMINUM HYD/SIMETH 30 ML, LIDOCAINE HCL 2... PO (19:25)
[2021-06-10 20:44] VITALS: BP 108/68; PULSE 62; RESP 16; O2SAT 99
== END 2021-06-10 20:46 | disposition home or self-care (01) ==
PROVIDERS: Emergency Provider Emergency Medicine; PCP Physician Assistant
DX: K29.70 Gastritis, unspecified, without bleeding (principal); Z97.5 Presence of (intrauterine) contraceptive device; R93.5 Abnormal findings on diagnostic imaging of other abdominal regions, including retroperitoneum
CPT/HCPCS: 36415; 74018; 80053; 81001; 81025; 83690; 85025; 87086; 99283; A9270

== ENCOUNTER 2021-08-05 19:59 | Emergency (ER) | payer OTHER, BC, SELFPAY ==
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
[2021-08-05 20:21] VITALS: BP 111/55; PULSE 99; RESP 18; TEMP 36.6; O2SAT 98
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
[2021-08-05] MEDS: KETOROLAC (*BKC) 60 MG/2 ML VIAL IM (22:15)
== END 2021-08-05 22:44 | disposition home or self-care (01) ==
PROVIDERS: Emergency Provider Emergency Medicine; PCP Physician Assistant
DX: S16.1XXA Strain of muscle, fascia and tendon at neck level, initial encounter (principal); S89.92XA Unspecified injury of left lower leg, initial encounter; S09.90XA Unspecified injury of head, initial encounter; E66.3 Overweight; Z68.26 Body mass index [BMI] 26.0-26.9, adult; V49.40XA Driver injured in collision with unspecified motor vehicles in traffic accident, initial encounter
CPT/HCPCS: 70450; 72125; 72128; 72131; 73564; 96372; 99284; J1885

== ENCOUNTER 2023-08-30 21:29 | Emergency (ER) | payer OTHER, SELFPAY ==
--- NOTE | ~2023-08-30 | XR_ITS ---
XR knee LT min 4V 08/30/2023 21:48 Indication: Left knee pain for 3-4 days Procedure: 4 views left knee Comparison: 08/05/2021 Findings: There are ossific densities medial to the distal aspect of the femur, suspicious for an age -indeterminate avulsion fractures. There is mild adjacent soft tissue swelling. There is a healed pro ximal tibial fracture. No significant joint effusion. Impression: 1: Small ossific densities medial to the medial femoral condyle, suspicious for age-indeterminate avu lsion fracture with mild associated soft tissue swelling. Correlate for point tenderness. Reviewed, dictated and finalized at location A. Impression: 1: Small ossific densities medial to the medial femoral condyle, suspicious for age-indeterminate avulsion fracture with mild associated soft tissue swelling. Correlate for point tenderness.
[2023-08-30 21:31] VITALS: BP 134/75; PULSE 85; RESP 16; TEMP 36.3; O2SAT 100
--- NOTE | 2023-08-30 22:20 | ED.LOWEXIN ---
HPI - Extremity Injury (Lower) General Chief Complaint: Extremity Injury, Lower Stated Complaint: foot Time Seen by Provider: 08/30/23 22:06 History of Present Illness HPI Narrative: 22-year-old Malagasy-speaking female presents with her mother at bedside for left knee pain for 3 days. Machine Rigger used at bedside. Patient states her knee started hurting 3 days spontaneously. States the pain is worse with movement and walking. She does admit that she recently started a job within the past week that requires her to stand for 8 hours a day. She endorses that she has had multiple surgeries on her knee including a tumor removal and cartilage repair. Her last surgery was 1 year ago. Her orthopedist at is at [place]. She denies fever, vomiting. Denies possibility of . Related Data Home Medications Medication Instructions Recorded Confirmed No Home Medications 08/30/23 Allergies Allergy/AdvReac Type Severity Reaction Status Date / Time No Known Allergies Allergy Verified 08/30/23 21:34 Review of Systems Review of Systems: CONSTITUTIONAL: Denies fever, chills, or sweats. EYES: Denies visual changes, redness, or discharge. ENT: Denies rhinorrhea, congestion, sore throat, or otalgia. CARDIOVASCULAR: Denies chest pain, palpitations, or edema. RESPIRATORY: Denies cough or dyspnea. GASTROINTESTINAL: Denies abdominal pain, nausea, vomiting, or diarrhea. GENITOURINARY: Denies dysuria or hematuria. SKIN: Denies rash or itching. MUSCULOSKELETAL: See HPI NEUROLOGIC: Denies headache, numbness, dizziness, or weakness. PSYCHIATRIC: Denies anxiety or depression. [facility] Past Medical History Medical History growth restriction GBS (group B Streptococcus carrier), +RV culture, currently Heterozygous MTHFR mutation C677T Migraine headache Overweight (BMI 25.0-29.9) and not yet delivered Surgical History Surgical History Delivery by section H/O knee surgery Family History Family History Mother Diabetes mellitus Social History Social History Smoking status: Never smoker Second hand tobacco smoke exposure: No Alcohol intake: never Substance use: never Substance use type: does not use Living arrangements: with family Occupation/Education: unemployed Gender identity (if verbalized by the patient): Female Sexual Orientation (if Verbalized by the Patient): Straight or Heterosexual Spiritual care concerns: No Agree to blood products: Yes Exam Narrative: GENERAL: Well-appearing, well-nourished, and in no acute distress. HEAD: Normocephalic, atraumatic. EYES: PERRLA and EOMI. ENT: Nares clear, no rhinorrhea or epistaxis. Mucous membranes moist. NECK: Supple. No adenopathy or masses. CHEST: No respiratory distress. Clear to auscultation. No wheezes rales or rhonchi HEART: Regular rate and rhythm. No murmur heard. Normal peripheral pulses. MSK: RLE: Tenderness to the distal medial femur and medial aspect of the knee palpation. No obvious deformities. Well-healed scars at the knee. Full active and passive range of motion. No overlying erythema or warmth to any. No tenderness to remainder lower extremity. Sensation intact. DP pulse 2 +. SKIN: Warm, dry, no rash. NEURO: Alert and oriented x3. No focal deficits. PSYCH: Normal mood and affect. Course Vital Signs Vital signs: Vital Signs Temperature 97.4 F L 08/30/23 21:31 Pulse Rate 85 08/30/23 21:31 Respiratory Rate 16 08/30/23 21:31 Blood Pressure 134/75 08/30/23 21:31 Pulse Oximetry 100 08/30/23 21:31 Oxygen Delivery Room Air 08/30/23 21:31 Temperature 97.4 F L 08/30/23 21:31 Pulse Rate 85 08/30/23 21:31 Respiratory Rate 16 0
[2023-08-30] MEDS: IBUPROFEN 400 MG TABLET 800 MG PO (22:37)
[2023-08-30 22:58] VITALS: BP 138/72; PULSE 101; RESP 18; TEMP 36.8; O2SAT 100
== END 2023-08-30 22:49 | disposition home or self-care (01) ==
PROVIDERS: Emergency Provider Physician Assistant; PCP Physician Assistant
DX: M25.562 Pain in left knee (principal); S72.432A Displaced fracture of medial condyle of left femur, initial encounter for closed fracture; E66.3 Overweight; Z68.27 Body mass index [BMI] 27.0-27.9, adult; X58.XXXA Exposure to other specified factors, initial encounter
CPT/HCPCS: 73564; 99284; A9270

== ENCOUNTER 2024-04-01 05:52 | Emergency (ER) | payer OTHER, SELFPAY ==
[2024-04-01] VITALS (20 sets, daily range): BP systolic 99–125; BP diastolic 56–76; PULSE 56–77; RESP 16–23; TEMP 36.3; O2SAT 98–100
--- NOTE | ~2024-04-01 | CT_ITS ---
EXAMINATION: CT abdomen pelvis w con DATE: 04/01/2024 12:04 INDICATION: Abdominal pain TECHNIQUE: Computed tomography (CT) of the abdomen and pelvis was performed with 100 mL Omnipaque-350 intravenous contrast. Automated exposure control and iterative reconstruction technique were employe d. The dose-length product was 338.93 mGy-cm. COMPARISON: None FINDINGS: Lung bases are clear. Heart size is normal. No pericardial or pleural effusion. Focal hepatic steatos is at the ligamentum teres. Gallstone at the neck of the otherwise normal-appearing gallbladder. Live r, spleen, pancreas, bilateral adrenal glands and kidneys are normal. Bowels including the appendix a re normal. Bladder, anteverted uterus and left ovary are unremarkable. 1.7 cm peripherally enhancing corpus luteum cyst at the right ovary. Trace amount of likely physiologic fluid at the cul-de-sac. As ymmetric enlargement of the left-sided parametrial vessels on the left gonadal vein which can be seen with pelvic vasculature congestion syndrome and AV related to significant narrowing of the left caitlyn l vein where it passes between the aorta and superior mesenteric artery. Multiple calcified mesenteri c lymph nodes likely sequela of old granulomatous disease. No pathologically enlarged abdominal or pe lvic lymphadenopathy. Bones are unremarkable. IMPRESSION: 1. Cholelithiasis. 2. 1.7 cm corpus luteum cyst at the right ovary. 3. Asymmetric enlargement of the left parametrial vessels and left gonadal vein which can be seen wit h pelvic vascular congestion syndrome. Reviewed, dictated and finalized at location A. LING COUNSELLOR IMPRESSION: 1. Cholelithiasis. 2. 1.7 cm corpus luteum cyst at the right ovary. 3. Asymmetric enlargement of the left parametrial vessels and left gonadal vein which can be seen with pelvic vascular congestion syndrome.
[2024-04-01 10:44] LABS: Basophils Percent Auto 0.4 % (0.2-1.2); Eosinophils Absolute Auto 0.2 K/mm3 (0-0.3); Eosinophils Percent Auto 1.9 % (0-4.4); Hematocrit 37.6 % (37.0-47.0); Hemoglobin 12.9 g/dL (12.0-15.0); Immature Granulocyte Absolute 0.03 K/mm3 (0.00-0.031); Immature Granulocyte Percent A 0.3 % (0-0.5); Lymphocytes Absolute Auto 1.99 K/mm3 (0.9-3.2); Mean Corpuscular HGB Conc 34.3 g/dl (32-36); Mean Corpuscular Volume 84.5 fl (80-100); Mean Platelet Volume 10.6 fl (7.4-10.4); Monocytes Absolute Auto 0.5 K/mm3 (0.1-0.6); Monocytes Percent Auto 5.1 % (2.6-8.5); Neutrophils Absolute Auto 6.8 K/mm3 (1.3-6.7); Neutrophils Percent Auto 71.3 % (45.5-73.1); Platelet Count Result 258 k/mm3 (150-375); Red Blood Count 4.45 M/mm3 (4.2-5.4); Red Cell Distribution Width 12.1 % (11.5-14.5); White Blood Count 9.5 K/mm3 (4.5-10.0)
[2024-04-01 10:53] LABS: Alanine Aminotransferase 19 U/L (6-35); Albumin Level 4.6 g/dL (3.5-5.1); Alkaline Phosphatase 68 U/L (38-126); Anion Gap 5 mmol/L (4-12); Aspartate Amino Transferase 20 U/L (14-36); Bilirubin,Total 0.3 mg/dL (0.2-1.3); Blood Urea Nitrogen 15 mg/dL (7-17); Calcium 9.4 mg/dL (8.4-10.2); Carbon Dioxide 24 mmol/L (22-30); Chloride 107 mmol/L (98-107); Estimated CRCL calculation 138 ml/min; Estimated Glomerular Filt Rate > 60; Glucose 107 mg/dL (65-110); Lipase 166 U/L (23-300); Sodium 136 mmol/L (137-145)
[2024-04-01 10:56] LABS: INR 1.1; Prothrombin Time 14.1 Seconds (11.1-14.7)
[2024-04-01 10:57] LABS: Partial Thromboplastin Time 26.2 Seconds (22.3-36.8)
[2024-04-01] MEDS: FAMOTIDINE 20 MG/2 ML VIAL IV PUSH (11:18)
[2024-04-01] MEDS: PANTOPRAZOLE SODIUM IV 40 MG VIAL IV PUSH (11:18)
--- NOTE | 2024-04-01 11:19 | ED_ITS ---
HPI - General Adult General Chief complaint: Abdominal Pain Stated complaint: ABD PAIN Time Seen by Provider: 04/01/24 10:11 History of Present Illness HPI narrative: 23-year-old female present to the emergency department for evaluation for epigastric burning. Patient reports epigastric burning pain that is been going on for the last few days. Related Data Allergies Allergy/AdvReac Type Severity Reaction Status Date / Time No Known Allergies Allergy Verified 04/01/24 10:22 Review of Systems 2 Review of Systems: All systems reviewed & are unremarkable except as noted in HPI and below PMFSH Past Medical History Medical History growth restriction GBS (group B Streptococcus carrier), +RV culture, currently Heterozygous MTHFR mutation [id number] Migraine headache Overweight (BMI 25.0-29.9) and not yet delivered Surgical History Surgical History Delivery by section H/O knee surgery Family History Family History Mother Diabetes mellitus Social History Social History (Updated 09/02/23 @ 13:17 by Laura Song CMA) Smoking status: Never smoker Tobacco type: e-cigarettes/vaping Second hand tobacco smoke exposure: No Additional smoking assessment comments: occasionally vapes Alcohol intake: never Substance use: never Substance use type: does not use Do You Feel Safe in your Home?: Yes Lack of Transportation: No Lack of Food: Never True Current Housing: I Have Housing Concerned About Future Housing: No Difficulty Paying Gas/Electric Bills: No Difficulty Paying for Meds: No Currently Unemployed: No Education: High School Diploma/GED Difficulty w/ Childcare or Family Care: No Living arrangements: with family Occupation/Education: unemployed Gender identity (if verbalized by the patient): Female Sexual Orientation (if Verbalized by the Patient): Straight or Heterosexual Spiritual care concerns: No Agree to blood products: Yes Exam 2 Narrative: APPEARANCE: Well appearing, no pain, no distress, well-nourished. HEAD: normocephalic, atraumatic. EYES: PERRLA/EOMI, conjunctivae clear. NOSE: Normal no drainage EARS:TMS clear with good light reflex. THROAT: Pharynx clear, no exudate. NECK: Supple. No adenopathy, no masses. RESPIRATORY: Airway patent, respirations nonlabored. Clear to auscultation bilaterally, no rales, rhonchi, wheezing. CARDIOVASCULAR: Regular rate and rhythm without murmurs rubs or gallops. ABDOMINAL: Soft, nontender, nondistended, normal bowel sounds MUSCULOSKELETAL: Moves all extremities. Strength/ROM intact, No edema, No calf tenderness. NEURO: Alert. Cranial nerves II through XII intact. Grossly intact SKIN: Warm, dry. Normal Color Course Vital Signs Vital signs: Vital Signs Temperature 97.3 F L 04/01/24 06:00 Pulse Rate 65 04/01/24 06:00 Respiratory Rate 20 04/01/24 06:00 Blood Pressure 125/76 04/01/24 06:00 Pulse Oximetry 100 04/01/24 06:00 Oxygen Delivery Room Air 04/01/24 06:00 Temperature 97.3 F L 04/01/24 06:00 Pulse Rate 56 L 04/01/24 14:00 Respiratory Rate 21 H 04/01/24 14:00 Blood Pressure 99/58 L 04/01/24 11:30 Pulse Oximetry 99 04/01/24 14:00 Oxygen Delivery Room Air 04/01/24 06:00 Medical Decision Making MDM Narrative Medical decision making narrative: 23 old female present to the emergency department for evaluation for epigastric burning pain. Patient is afebrile with no leukocytosis and hemoglobin of 12.9. Patient has no acute abnormalities on her CMP with a normal T bili AST ALT alk- phos and lipase. Patient's urine test was negative. CT abdomen pelvis showed cholelithiasis without coli cystitis. Patient did feel improved with treatment with IV Protonix, IV famotidine IV fluids. Patient was updated results of the workup. Patient was comfortable plan for discharge and close follow-up. Differential Diagnosis Differential Diagnosis: Colitis, diverticulitis, appendicitis, cholecystitis Vital Signs Vital Signs: Vital Signs Temperature 97.3 F L 04/01/24 06:00 Pulse Rate 65 04/01/24 06:00 Respiratory Rate 20 04/01/24 06:00 Blood Pressure 125/76 04/01/24 06:00 Pulse Oximetry 100 04/01/24 06:00 Oxygen Delivery Room Air 04/01/24 06:00 Temperature 97.3 F L 04/01/24 06:00 Pulse Rate 56 L 04/01/24 14:00 Respiratory Rate 21 H 04/01/24 14:00 Blood Pressure 99/58 L 04/01/24 11:30 Pulse Oximetry 99 04/01/24 14:00 Oxygen Delivery Room Air 04/01/24 06:00 Lab Data Lab results reviewed: Yes I reviewed the patient's lab results. 04/01/24 10:38 04/01/24 10:38 Labs: Lab Results 04/01/24 04/01/24 Range/Units 10:38 11:30 WBC 9.5 (4.5-10.0) K/mm3 RBC 4.45 (4.2-5.4) M/mm3 Hgb 12.9 (12.0-15.0) g/dL Hct 37.6 (37.0-47.0) % MCV 84.5 (80-100) fl MCH 29.0 (26-34) pg MCHC 34.3 (32-36) g/dl RDW 12.1 (11.5-14.5) % Plt Count 258 (150-375) k/mm3 MPV 10.6 H (7.4-10.4) fl Immature Gran % (Auto) 0.3 (0-0.5) % Neut % (Auto) 71.3 (45.5-73.1) % Lymph % (Auto) 21.0 (18.3-44.2) % [place] % (Auto) 5.1 (2.6-8.5) % Eos % (Auto) 1.9 (0-4.4) % Baso % (Auto) 0.4 (0.2-1.2) % Lymph # (Auto) 1.99 (0.9-3.2) K/mm3 [place] # (Auto) 0.5 (0.1-0.6) K/mm3 Eos # (Auto) 0.2 (0-0.3) K/mm3 Baso # (Auto) 0.0 (0.0-0.1) K/mm3 Abs Immat Gran (auto) 0.03 (0.00-0.031) K/mm3 Absolute Neuts (auto) 6.8 H (1.3-6.7) K/mm3 Absolute Nucleated RBC 0.000 (0.0-0.012) K/mm3 Nucleated RBC % 0.0 (0.0-0.2) % PT 14.1 (11.1-14.7) Seconds INR 1.1 APTT 26.2 (22.3-36.8) Seconds Sodium 136 L (137-145) mmol/L Potassium 4.0 (3.4-5.0) mmol/L Chloride 107 (98-107) mmol/L Carbon Dioxide 24 (22-30) mmol/L Anion Gap 5 (4-12) mmol/L BUN 15 (7-17) mg/dL Creatinine 0.50 L (0.7-1.0) mg/dL Estim Creat Clear Calc 138 ml/min Estimated GFR > 60 (59 - ) Glucose 107 (65-110) mg/dL Calcium 9.4 (8.4-10.2) mg/dL Total Bilirubin 0.3 (0.2-1.3) mg/dL AST 20 (14-36) U/L ALT 19 (6-35) U/L Alkaline Phosphatase 68 (38-126) U/L Total Protein 8.0 (6.3-8.2) g/dL Albumin 4.6 (3.5-5.1) g/dL Lipase 166 (23-300) U/L POC Urine HCG, Qual Negative (Negative) Imaging Data Radiologist's impression: Impressions Abdomen/Pelvis CT 04/01/24 12:30 IMPRESSION: 1. Cholelithiasis. 2. 1.7 cm corpus luteum cyst at the right ovary. 3. Asymmetric enlargement of the left parametrial vessels and left gonadal vein which can be seen with pelvic vascular congestion syndrome. Discharge Plan Discharge Clinical Impression: Acute upper abdominal pain Patient Disposition: Home, Self-Care Condition: Stable Instructions: Antibiotic Form Additional Instructions: Omeprazole as directed for the next 14 days. Avoid alcohol and avoid NSAIDs. Have close follow-up with GI. If you have any worsening symptoms then please call or return to the emergency department Patient Language: Japanese Prescriptions: New omeprazole 20 mg capsule,delayed release(DR/EC) 20 mg PO DAILY 14 Days Qty: 14 0RF No Action prednisone 10 mg tablet 10 mg PO BID Qty: 20 0RF Follow-up/Referrals: PHYSICIAN,TELEVISION NEWSCAST DIRECTOR [Primary Care Provider] - Tung Becker MD [Physician] -
[2024-04-01 11:31] LABS: BEDSIDEPREGUCG Negative (Negative)
--- OUTSIDE RECORDS SUMMARY | 2024-04-08 03:58 | XMS_ITS | Data Portability ---
Author Organization [place] - [facility], Main Office Address [address] [place] [address] Care Team Providers Care Field Service Coordinator Name Role Phone JACKIE GARCIA Primary Care Provider [phone] JACKIE GARCIA Referring Provider Assessment Encounter Date Assessment Date Assessment LastModified by Organization Details LastModified Time 08/18/2022 08/18/2022 This note is dictated and transcribed by [employer]. Supply Controller variances may occur. Despite proofreading, typographical errors may occur. Not available 08/18/2022 18:04:09 10/27/2022 10/27/2022 This note is dictated and transcribed by [employer]. Supply Controller variances may occur. Despite proofreading, typographical errors may occur. Not available 10/27/2022 09:35:47 09/15/2023 09/15/2023 22-year-old female presents for follow-up of her left knee. She is Lao-speaking visit today was conducted with a video mechanical assembler. She had a history of MPFL reconstruction on 02/19/2022. She presented to the emergency department at [facility] on 08/30/2023 after she was working for a long time and developed pain and swelling in the knee. This began about 3 weeks ago. She used a course of ibuprofen and crutches, and the pain has since improved. She does not have any symptoms today. Incisions are well healed, no signs of infection. She has no tenderness around the knee. No effusion. Nonantalgic gait. Range of motion 0-140, 2 quadrants of lateral translation of the patella, negative apprehension. Stable ligaments otherwise. X-rays were reviewed, demonstrating no acute bony abnormality She had a flare up of her knee after working for extended period of time. This has since resolved. We discussed that if this occurs in the future, she should rest, ice, elevate, and take anti-inflammatori es. She should also try to call the office before presenting to the emergency department. She may follow-up as needed. [email or web address] Not available 09/15/2023 18:29:49 Plan of Treatment Reminders Order Date Submit Date Provider Last Modified By Organization Details Last Modified Time Details Appointments None recorded. Lab None recorded. Referral None recorded. Procedures None recorded. Surgeries None recorded. Imaging XR, knee, 4 or more view 2023 024 [email or web address] [facility], [address] [facility] [address], [place], [address], 23:30:46 Medication Orders ketoconazol e 2 % topical cream [email or web address] [facility], [address] [place], [address], 12:00:50 Patient TargetsNo targets recorded. Patient Instructions Encounter Date Encounter Id Patient Instructions Last Modified By Organization Details Last Modified Time 10/27/2022 [id number] paroniquia: instrucciones de cuidado - [paronychia: care instructions] Not available 10/27/2022 09:35:47 Reason for Referral None Reported. Results Created Date Observation Date Name Description Value Unit Range Abnormal Flag Note LastModifiedBy Organization Detail LastModifiedTime 08/19/1909/11/2022 FUNGU S CULTU RE WITH STAIN fungus stain Final report abnormal Not Available [facility] (Lab) [address] [place], [address], 09/15/2022 11:13:41 08/19/1909/11/2022 FUNGU S CULTU RE WITH STAIN result 1 Hyphae observ ed abnormal Not Available [facility] (Lab) [address] [place], [address], 09/15/2022 11:13:41 05/09/11/2022 FUNGU S CULTU RE WITH STAIN culture, fungal Final report abnormal Not Available [facility] (Lab) [address] [place], [address], 09/15/2022 11:13:41 08/19/19 23 09/11/2022 FUNGU S CULTU RE WITH STAIN result 1 Commen t abnormal Fusar ium solan i compl ex Perfo rmed at: [facility] - [facility] n [address] [facility], [place] [address] Lab Direc tor: Andrei glynn PhD, Phone : [phone] Not Available [facility] (Lab) [address] [place], [address], 09/15/2022 11:13:41 09/06/19 24 XR, knee No observ ation record ed. [email or web address] Not Available 2023 17:02:18 09/15/19 24 XR, knee, 4 or more view No observ ation record ed. [email or web address] [facility] [place] [address] [facility] [address], [place], [address], 09/15/2023 12:02:58 Result Notes None recorded. Problems Name Problem SNOMED Code Status Onset Date Resolution Date Notes Provider Name and Address Organization Details Recorded Time Pain in left foot 3826375676651 07 Active 2021 Not Available [facility] 3 10:45:49 Onychomyco sis of toenails 490753335 Active 2021 Not Available [facility] 3 10:45:49 Patellar instabilit y 373402289 Active 2021 Not Available [facility] 3 10:45:49 Congenital discoid meniscus of left knee 2327867370738 05 Active 2021 Not Available [facility] 3 10:45:49 Pain of left knee joint 6085334768904 07 Active 2021 Not Available [facility] 3 10:45:49 Dystrophia unguium 76095137 Active 2022 Marco A Larson DPM [address], [place], [address] , [employer] 17:27:19 Problem Notes None recorded. Procedures Surgical History Date Name Laterality Status Provider Name and Address Organization Details Recorded Time 10/28/19 23 Blank Procedure Note completed Marco A Larson DPM [address], [address], [place], [address], [employer] 10/27/2022 09:34:29 08/19/19 23 Nail Debridement completed Marco A Larson DPM [address], [place], [address], [employer] 08/18/2022 18:03:55 01/10/20 section completed Not Available [facility] 06/03/2022 10:42:39 Imaging Results Imaging Date Name Status LastModified by Organiz ation Details LastModified Time 09/06/2023 XR, knee completed Information no t available 09/06/2023 17:02:18 09/15/2023 XR, knee, 4 or more view completed [email or web address] [facility] [place] [address] [facility] [address], [place], [address], 09/15/2023 12:02:58 Procedure Notes None recorded. Medical Equipment None Reported. Medications Name Sig Start Date Stop Date Status Note LastModified by Organization Details LastModified Time prednisone 10 mg tablet TAKE 1 TABLET BY MOUTH TWICE DAILY active Not Available Not Available No t Available Tab-A-Monie tablet 01/08 completed Not Available Not Available Not Available azithromyci n 250 mg tablet 01/08 completed Not Available Not Available Not Available ibuprofen 800 mg tablet TAKE 1 TABLET BY MOUTH THREE TIMES DAILY WITH MEALS active Not Available Not Available No t Available fluconazole 150 mg tablet 09/14 completed Not Available Not Available Not Available hydrocodone 5 mg-acetamin ophen 325 mg tablet Take 1 tablet every 6 hours by oral route. 06/12 /2024 completed Not Available Not Available Not Available terconazole 0.8 % vaginal cream 01/08 completed Not Available Not Available Not Available metronidazo le 500 mg tablet 12/18 completed Not Available Not Available Not Available famotidine 20 mg tablet TAKE 1 TABLET BY MOUTH TWICE DAILY 01/08 completed Not Available Not Available Not Available cephalexin 500 mg capsule 01/08 completed Not Available Not Available Not Available lidocaine 5 % topical patch aplique un parche IN EACH NOSTRIL el greg afectada travis 12 horas y luego djelo por 12 horas active Not Available Not Available No t Available ketoconazol e 2 % topical cream APPLY CREAM TOPICALLY THE AFFECTED AREA(S) OF ALL TOENAILS ONCE DAILY 09/14 completed Not Available Not Available Not Available naproxen 500 mg tablet TAKE 1 TABLET BY MOUTH TWICE DAILY NEEDED FOR PAIN 09/14 completed Not Available Not Available Not Available cyclobenzap rine 5 mg tablet TAKE 1 TABLET BY MOUTH THREE TIMES DAILY NEEDED FOR MUSCLE SPASM 12/18 completed Not Available Not Available Not Available PreviDent 5000 Booster Plus 1.1 % dental paste BRUSH TEETH NORMAL AT BEDTIME, THEN ADD PEA SIZE AMOUNT OF PREVIDENT TO THE TOOTHBRUS H AND BRUSH ON. DO NOT EAT OR DRINK ANYTHING FOR 30 MINUTES. LEAVE ON OVERNIGHT active Not Available Not Available No t Available EluRyng 0.12 mg-0.015 mg/24 hr vaginal ring INSERT ONE RING VAGINALLY AND LEAVE IN PLACE FOR 3 CONSECUTI VE WEEKS, THEN REMOVE FOR 1 WEEK. INSERT NEW RING 7 DAYS AFTER THE LAST WAS REMOVED active Not Available Not Available No t Available Tab-A-Monie 400 mcg tablet TAKE 1 TABLET BY MOUTH ONCE DAILY 01/08 completed Not Available Not Available Not Available Vitals Date Recorded Body height Heart rate Respiratory rate Oxygen saturation Oxygen saturation in Arterial blood by Pulse oximetry Systolic blood pressure Diastolic blood pressure Provider Name and Address Organization Details Last Updated DateTime 3 160.02 cm 80 /min 14 /min 99 % 99 % 109 mm[Hg] 67 mm[Hg] Camila BARRON [facility] [employer] 3 16:36:35 Date Recorded Body height Heart rate Respiratory rate Oxygen saturation Oxygen saturation in Arterial blood by Pulse oximetry Systolic blood pressure Diastolic blood pressure Provider Name and Address Organization Details Last Updated DateTime 3 160.02 cm 55 /min 14 /min 99 % 99 % 138 mm[Hg] 86 mm[Hg] Camila Salazar [facility] [employer] [facility] 3 09:23:05 Date Recorded Body height Heart rate Respiratory rate Oxygen saturation Oxygen saturation in Arterial blood by Pulse oximetry Systolic blood pressure Diastolic blood pressure Provider Name and Address Organization Details Last Updated DateTime 3 160.02 cm 78 /min 14 /min 99 % 99 % 109 mm[Hg] 80 mm[Hg] Camila Salazar [facility] [employer] [facility] 3 16:38:47 Date Recorded Body height Heart rate Respiratory rate Oxygen saturation Oxygen saturation in Arterial blood by Pulse oximetry Systolic blood pressure Diastolic blood pressure Provider Name and Address Organization Details Last Updated DateTime 3 160.02 cm 70 /min 14 /min 99 % 99 % 125 mm[Hg] 89 mm[Hg] Camila Salazar [facility] [employer] [facility] 3 16:28:43 Date Recorded Body height Body mass index (BMI) Body weight Provider Name and Address Organization Details Last Updated DateTime 09/15/2023 160.02 cm 27.8 kg/m2 90958 g Rahel Rivera [facility] [employer] [facility] 09/15/2023 12:00:04 Social History Question Answer Notes LastModified by Organizat ion Details LastModified Time Tobacco Smoking Status Never Smoker Not Available [facility] 06/03/2022 10:42:08 What Is Your Level Of Alcohol Consumption? None [id number] Information not available 06/03/2022 If You Are , What Was Your Level Of Alcohol Consumption Prior To ? None [id number] Information not available 06/03/2022 What Is Your Level Of Caffeine Consumption? Occasional [id number] Information not available 06/03/2022 Do You Or Have You Ever Used E-cigarettes Or Vape? Current User Of Electronic Cigarettes [email or web address] Information not available 09/15/2023 What Was The Date Of Your Most Recent Tobacco Screening? 09/15/2023 [email or web address] Information not available 09/15/2023 Do You Use Any Illicit Or Recreational Drugs? No [id number] Information not available 06/03/2022 Has Tobacco Cessation Counseling Been Provided? No [id number] Information not available 06/03/2022 Do You Or Have You Ever Used Any Other Forms Of Tobacco Or Nicotine? Yes [email or web address] Information not available 09/15/2023 Sex: Unknown Functional Status None recorded. Mental Status None recorded. Family History Relationship Description Onset Age of this Age Resolved Age Notes LastModified by Organization Details LastModified Time Mother Diabetes mellitus [email or web address] Not available 2023 12:01:42 Medical History Condition Response BLINDNESS N KIDNEY STONES N MRSA N CARPAL TUNNEL SYNDROME N LUNG DISEASE/DISORDER N HISTORY OF DRUG ABUSE N COPD N RADIATION / CHEMOTHERAPY N SPORTS INJURY N ANKLE PAIN N BLOOD DISEASES N SCHIZOPHRENIA N SHINGLES N SHOULDER PAIN N DEPRESSION (INCLUDING POST ) N BOWEL PROBLEMS N STROKE/TIA N KNEE PAIN N ULCERS N BENIGN PROSTATIC HYPERPLASIA N OBESITY N GERD/NAUSEA N ANEURYSM N URINARY/BLADDER/KIDNEY PROBLEMS N CORONARY ARTERY DISEASE (CAD) N Do you have Advance directive? N ADDICTION CONCERNS N USE OF BLOOD THINNERS N SKIN PROBLEMS N EMPHYSEMA N PERIPHERAL VASCULAR DISEASE N MUSCLE,JOINT OR BONE PROBLEMS N DVT N STOMACH ULCERS N Do you have a living will? N BLOOD CLOTS N USE OF NSAIDS N CONCUSSION OR SPINAL TRAUMA N CHF N NEUROPATHY N AIDS/HIV N FRACTURES N HYPERTENSION N ELBOW PAIN N TOURETTE'S N Metal allergy N ANXIETY DISORDER N BLOOD TRANSFUSION N ANEMIA/BLOOD DISORDER N BIPOLAR DISORDER N BRONCHITIS N OSTEOARTHRITIS N TUBERCULOSIS N FOOT PROBLEM N HEART VALVE DISORDERS N ALLERGIES/HAYFEVER N SOFT TISSUE INJURY N INFECTIOUS DISEASE N HEART ARRHYTHMIA N INSOMNIA N HIGH CHOLESTEROL / HYPERLIPIDEMIA N RHEUMATOID ARTHRITIS N EDEMA N CHRONIC PAIN SYNDROME N CAROTID BLOCKAGE N BACK / NECK PROBLEMS N HAVE YOU BEEN HOSPITALIZED OR SEEN IN [facility] IN THE PAST YEAR ? N BURSITIS N HERNIATED DISC N DIALYSIS N FIBROMYALGIA N OSTEOPOROSIS N ARTHRITIS N Do you have a healthcare POA? N NO SIGNIFICANT PAST MEDICAL HISTORY N PERIPHERAL NEUROPATHY N DIABETES, TYPE N HEARTBURN / REFLUX N HEPATITIS / LIVER DISEASE N GOUT N ALZHEIMER'S DISEASE N SLEEP DISORDER N PAIN N HERPES N HEADACHES/MIGRAINES N SEIZURES/EPILEPSY N VASCULAR DISEASE N HIP PAIN N Blood Disorder N DIZZINESS N HEAD TRAUMA OR INJURY N HEART DISEASE/HEART PROBLEMS N MULTIPLE SCLEROSIS N CARDIAC ARRHYTHMIA N CANCER: SPECIFY N ANESTHESIA COMPLICATIONS N ATRIAL FIBRILLATION N AUTOIMMUNE DISEASE N Gynecological HistoryNo gynecological history recorded. Obstetrics History GPAL:G 0 P 0 0 0 0 Past Encounters Encounter ID Performer Location Encounter Start Date Encounter Closed Date Diagnosis/Indication Diagnosis SNOMED-CT Code Diagnosis ICD10 Code [id number] [facility] [address] [place] [address] 12/18/2021 00:00:00 12/18/2021 11:00:26 [id number] [facility] [address] [place] [address] 01/08/2022 00:00:00 01/08/2022 10:59:15 [id number] [facility] [place] [address] [facility] [address] [place] [address] 01/29/2022 00:00:00 01/29/2022 15:26:38 [id number] [facility] [address] [place] [address] 02/10/2022 00:00:00 02/10/2022 14:58:24 [id number] [facility] [place] [address] [facility] [address] [place] [address] 02/25/2022 00:00:00 02/25/2022 11:34:26 [id number] [facility] [place] [address] [facility] [address] [place] [address] 03/11/2022 00:00:00 03/11/2022 10:43:26 [id number] [facility] [place] [address] [facility] [address] [place] [address] 04/08/2022 00:00:00 04/08/2022 11:09:51 [id number] [facility] [place] [address] [facility] [address] [place] [address] 04/09/2022 00:00:00 04/09/2022 10:03:26 [id number] [facility] [place] [address] [facility] [address] [place] [address] 05/22/2022 00:00:00 05/22/2022 14:18:57 [id number] Marco A Larson DPM [facility] [place] [address] [facility], [address] [address] 08/18/2022 16:32:18 08/19/2022 10:37:14 Onychomycosis of toenails 129205582 B35.1 [id number] Marco A Larson DPM [facility] [place] [address] [place] [address], [address] [address] 10/27/2022 09:09:38 10/27/2022 10:23:16 Onychomycosis of toenails 872603962 B35.1 [id number] Marco A Larson DPM [facility] [place] [address] [place] [address], [address] [address] 11/10/2022 16:34:38 11/10/2022 16:45:13 Onychomycosis of toenails 904373768 B35.1 [id number] Marco A Larson DPM [facility] [place] [address] [place] [address], [address] [address] 02/09/2023 16:21:34 02/09/2023 17:29:07 Onychomycosis of toenails 156197183 B35.1 Dystrophia unguium 75483 009 L60.3 [id number] Rashel Ferris MD [facility] [place] [facility] [address] [facility] [address] [place] [address] 09/15/2023 11:35:31 09/15/2023 12:26:10 Pain of left knee joint 8942164436 72144 M25.562 Health Concerns Section Related Observation LastModified by Organization Detai ls LastModified Time None Recorded Concern Status LastModified by Organization Details LastModified Time None Recorded Advance Directives Directive None Recorded Payers Encounter Date Sequence Insurance Name Policy Number Policy Burkett Covered Member ID Burkett Member ID Guarantor Name 08/18/2022 1 [facility] (MEDICAID HMO) [id number] Jihan House [id number] Jihan martinez 10/27/2022 1 [facility] (MEDICAID HMO) [id number] Jihan House [id number] Jihan Oneill s 11/10/2022 1 [facility] (MEDICAID HMO) [id number] Jihan House [id number] Jihan Oneill s 02/09/2023 1 [facility] (MEDICAID HMO) [id number] Jihan House [id number] Jihan Oneill s 09/15/2023 1 [facility] (MEDICAID HMO) [id number] 0003 Jihan House [id number] Jihan Oneill s Notes Date Note Type Note Provider Name and Address Organization Details Recorded Time 08/18/2022 text/html . Patient is a 21-year-old female who returns the office for follow-up on onychomycosis of toenails. Patient had biopsies taken of her toenails which were loss by the lab and are being repeated today. Patient was again reviewed her treatment options and at this time she would like to start topical ketoconazole. Patient would also like to have the toenails removed in order to be a quicker resolution of the toenail fungus. Patient denies any other pedal complaints. Marco A Larson DPM [address], [place], [address], [employer] 08/18/2022 18:04:45 10/27/2022 text/html . Patient is a 22-year-old female who returns the office for follow-up on onychomycosis of her great toenails. Patient elects to undergo a toenail procedure today. Patient uses a community relations director service for translating as she has difficulty understanding some Slovak. Patient's questions were completely answered via the community relations director service. Patient elects to continue with the planned procedure and undergo total nail avulsion of both great toenails. All risks, benefits, complications were reviewed with the patient to her complete full understanding. Patient understands these risks and elects to continue. No guarantees were given or implied. Marco A Larson DPM [address], [place], [address], [employer] 10/27/2022 10:22:31 11/10/2022 text/html . Patient is a 22-year-old female who returns the office for onychomycosis of bilateral great toenails. Patient had both of the great toenails avulsed to see if this would help improve the nails. So far the nails about 50% regrown back as normal in nature. Patient denies any pain to the area. Patient states she is pleased with how they are already looking. We will start topical medication with ketoconazole to prevent recurrence of the toenail infection and once she is completely healed both great toes we will plan on removal of the rest of her toenails with fungus. Marco A Larson DPM [address], [facility] [address], [place], [address], [employer] 11/10/2022 16:41:46 02/09/2023 text/html . Patient is a 22-year-old female who returns the office for follow-up on onychomycosis. Patient has no further discoloration of the toenails. Patient continues have some mild thickening of the nail secondary to prior trauma. Patient understands that there is nothing else that can be done to correct the thickened nature of the toenail I did recommend that she filed the area down to make it appealing. Patient denies any other pedal complaints. Marco A Larson DPM [address], [place], [address], [employer] 02/09/2023 17:28:19 OBGyn Episode No OBEpisode recorded.
== END 2024-04-01 14:22 | disposition home or self-care (01) ==
PROVIDERS: Emergency Provider Emergency Medicine
DX: R10.13 Epigastric pain (principal); F17.290 Nicotine dependence, other tobacco product, uncomplicated; K80.20 Calculus of gallbladder without cholecystitis without obstruction; N83.11 Corpus luteum cyst of right ovary; R93.89 Abnormal findings on diagnostic imaging of other specified body structures
CPT/HCPCS: 36415; 74177; 80053; 81025; 83690; 85025; 85610; 85730; 96374; 96375; 99284; J2470; Q9967

== ENCOUNTER 2024-05-09 11:23 | Emergency (ER) | payer OTHER, SELFPAY ==
[2024-05-09 11:56] VITALS: BP 96/65; PULSE 105; RESP 20; TEMP 38.1; O2SAT 100
[2024-05-09 13:02] LABS: Influenza A QL RT-PCR Positive (Negative); Influenza B QL RT-PCR Negative (Negative); RSV RNA, RT-PCR Negative (Negative); SARS-CoV-2 RNA PCR Negative (Negative)
--- NOTE | 2024-05-09 14:49 | ED.URI ---
HPI - URI/Sore Throat General Chief Complaint: Upper Respiratory Infection Stated Complaint: Fever cough since Wednesday Time Seen by Provider: 05/09/24 13:49 Source: patient Mode of arrival: ambulatory Limitations: language barrier History of Present Illness HPI Narrative: 23-year-old otherwise healthy here with the complaints of cough for the or fever his last 3 days. Cough is nonproductive. Denies any shortness of breath. She works at a factory unable to go to work , elicited complaint: fever, cough and sore throat Severity: moderate Description of mucous: clear Related Data Allergies Allergy/AdvReac Type Severity Reaction Status Date / Time No Known Allergies Allergy Verified 04/01/24 10:22 Review of Systems Review of Systems: All systems reviewed & are unremarkable except as noted in HPI and below ENT: Reports system reviewed and no additional complaints, except as documented Respiratory: Respiratory: Reports as per HPI Gastrointestinal: Gastrointestinal: Reports no additional gastrointestinal complaints Musculoskeletal: Musculoskeletal: Reports no additional musculoskeletal complaints PMFSH Past Medical History Medical History Migraine headache GBS (group B Streptococcus carrier), +RV culture, currently growth restriction Heterozygous MTHFR mutation [id number] and not yet delivered Overweight (BMI 25.0-29.9) Surgical History Surgical History Delivery by section H/O knee surgery Family History Family History Mother Diabetes mellitus Social History Social History Smoking status: Never smoker Tobacco type: e-cigarettes/vaping Second hand tobacco smoke exposure: No Additional smoking assessment comments: occasionally vapes Alcohol intake: never Substance use: never Substance use type: does not use Do You Feel Safe in your Home?: Yes Lack of Transportation: No Lack of Food: Never True Current Housing: I Have Housing Concerned About Future Housing: No Difficulty Paying Gas/Electric Bills: No Difficulty Paying for Meds: No Currently Unemployed: No Education: High School Diploma/GED Difficulty w/ Childcare or Family Care: No Living arrangements: with family Occupation/Education: unemployed Gender identity (if verbalized by the patient): Female Sexual Orientation (if Verbalized by the Patient): Straight or Heterosexual Spiritual care concerns: No Agree to blood products: Yes Exam Narrative: GENERAL: Well-appearing, well-nourished, and in no acute distress. HEAD: Normocephalic, atraumatic. EYES: PERRLA and EOMI. ENT: Nares clear, no rhinorrhea or epistaxis. Mucous membranes moist. NECK: Supple. CHEST: Clear to auscultation. No respiratory distress. HEART: Regular EXTREMITIES: Normal range of motion. No edema. SKIN: Warm, dry, no rash. NEURO: No focal deficits. Alert and oriented x3. PSYCH: Normal mood and affect. Course Course Emergency Course: Informed patient about her lab work. Advised her to drink more fluids, Tylenol ibuprofen for body aches and fever she is not a candidate for Tamiflu as it is more than 3 days Vital Signs Vital signs: Vital Signs Temperature 38.1 C H 05/09/24 11:56 Pulse Rate 105 H 05/09/24 11:56 Respiratory Rate 20 05/09/24 11:56 Blood Pressure 96/65 L 05/09/24 11:56 Pulse Oximetry 05/09/24 11:56 Oxygen Delivery Room Air 05/09/24 11:56 Temperature 38.1 C H 05/09/24 11:56 Pulse Rate 105 H 05/09/24 11:56 Respiratory Rate 05/09/24 11:56 Blood Pressure 96/65 L 05/09/24 11:56 Pulse Oximetry 05/09/24 11:56 Oxygen Delivery Room Air 05/09/24 11:56 MDM - URI/Sore Throat Lab Data Labs: Lab Results 05/09/24 Range/Units 12:04 Influenza A (RT-PCR) Positive A (Negative) Influenza B (RT-PCR) Negative (Negative) RSV (RT-PCR) Negative (Negative) SARS-CoV-2 RNA (RT-PCR) Negative (Negative) Discharge Plan Discharge Clinical Impression: Influenza A Patient Disposition: Left Against Medical Advice Condition: Stable Instructions: Influenza (ED) Additional Instructions: Has been more fluids, take Tylenol ibuprofen for body aches and fever Patient Language: Montenegrin Prescriptions: No Action prednisone 10 mg tablet 10 mg PO BID Qty: 20 0RF omeprazole 20 mg capsule,delayed release(DR/EC) 20 mg PO DAILY 14 Days Qty: 14 0RF Follow-up/Referrals: UNKNOWN,DOCTOR [Primary Care Provider] - Ashtyn Wang DO [Physician] - Stand Alone Forms: Work/School Release IP Time of Disposition: 14:52
== END 2024-05-09 15:10 | disposition left against medical advice (07) ==
PROVIDERS: Emergency Provider Family Medicine
DX: J10.1 Influenza due to other identified influenza virus with other respiratory manifestations (principal); Z20.822 Contact with and (suspected) exposure to COVID-19
CPT/HCPCS: 87637; 99283